=== PATIENT | male | born 1980 | race Caucasian/White ===

== ENCOUNTER 2018-12-21 20:36 | Emergency (ER) | payer MEDICAID ==
[2018-12-21] MEDS: IBUPROFEN 800 MG TAB PO (21:45)
== END 2018-12-21 22:39 | disposition home or self-care (01) ==
LOC: E/R 20:36
DX: G50.0 Trigeminal neuralgia (principal); F17.210 Nicotine dependence, cigarettes, uncomplicated
CPT/HCPCS: 99283; Z7502